=== PATIENT | male | born 1965 | race American Indian/Alaskan Native ===

== ENCOUNTER 2017-07-20 10:12 | Inpatient (IN) | payer OTHER ==
[2017-07-20 10:45] VITALS: BMI 31.8
[2017-07-20 11:41] LABS: BASO # 0.1 K/uL (0.0-0.2); BASO % 1.1 % (0.0-2.0); EOS # 0.2 K/uL (0.0-0.7); HEMATOCRIT 44.1 % (35.0-51.0); LYMPH # 1.9 K/uL (1.0-4.3); LYMPH % 25.5 % (20.0-40.0); MEAN CELL VOLUME 65.1 fL (80.0-94.0); MEAN CORPUSCULAR HEMOGLOBIN 20.9 pg (27.0-31.0); MEAN CORPUSCULAR HGB CONC 32.2 g/dL (33.0-37.0); MONO # 0.6 K/uL (0.0-0.8); MONO % 7.7 % (0.0-10.0); NRBC % 0.1 % (0.0-2.0); RED CELL DISTRIBUTION WIDTH 14.7 % (11.5-14.5); WHITE BLOOD COUNT 7.6 K/uL (4.8-10.8)
[2017-07-20 11:49] LABS: CHLORIDE 99 mmol/L (98-107); POTASSIUM 4.2 mmol/L (3.6-5.2); SODIUM 136 mmol/L (132-148)
[2017-07-20 11:51] LABS: GFR AFRICAN-AMERICAN > 60
[2017-07-20 11:52] LABS: ALB/GLOB RATIO 0.9 (1.0-2.1); ALKALINE PHOSPHATASE 47 U/L (38-126); ALT/SGPT 68 U/L (21-72); AST/SGOT 30 U/L (17-59); BILIRUBIN,TOTAL 0.5 mg/dL (0.2-1.3); BLOOD UREA NITROGEN 18 mg/dL (9-20); CALCIUM 8.8 mg/dl (8.6-10.4); CARBON DIOXIDE 28 mmol/L (22-30); GLUCOSE,RANDOM 123 mg/dL (75-110); TOTAL PROTEIN 8.5 g/dL (6.3-8.3)
[2017-07-20 11:57] LABS: RBC URINE < 1 /hpf (0-3); URINE BILIRUBIN NEGATIVE (NEGATIVE); URINE BLOOD NEGATIVE (NEGATIVE); URINE COLOR Yellow (YELLOW); URINE GLUCOSE (UA) NORMAL (Normal); URINE KETONE NEGATIVE (NEGATIVE); URINE LEUKOCYTE ESTERASE NEG Leu/uL (Negative); URINE PROTEIN NEGATIVE (NEGATIVE); URINE UROBILINOGEN NORMAL mg/dL (0.2-1.0); WBC URINE 1 /hpf (0-5)
--- NOTE | 2017-07-20 12:41 | C.PDOC ---
History Of Present Illness 52 year old male presents to the ED after he accidentally hit his elbow while at work, left elbow swelled up associated with a fever and has a purulent discharge from his elbow. Patient went to his PMD Dr. Phelan who referred him to Dr. Costello and also prescribed him clindamycin then Dr. Costello sent the patient to the ED for evaluation and possible surgical treatment. Time Seen by Provider: 07/20/17 10:43 Chief Complaint (Nursing): Abnormal Skin Integrity History Per: Patient History/Exam Limitations: no limitations Onset/Duration Of Symptoms: Days Location Of Injury: Left: Elbow (swelling to olecranon area) Quality Of Symptoms: Swollen Recent travel outside of the [place]: No Additional History Per: Patient Past Medical History Reviewed: Historical Data, Nursing Documentation, Vital Signs Vital Signs: Last Vital Signs Temp 98.1 F 07/20/17 14:19 Pulse 59 L 07/20/17 17:00 Resp 13 07/20/17 17:00 BP 123/84 07/20/17 17:00 Pulse Ox 99 07/20/17 17:46 - Medical History PMH: HTN Surgical History: No Surg Hx Family History: States: Unknown Family Hx - Social History Hx Alcohol Use: No Hx Substance Use: No - Immunization History Hx Tetanus Toxoid Vaccination: No Hx Influenza Vaccination: No Hx Pneumococcal Vaccination: No Review Of Systems Constitutional: Negative for: Fever, Chills Cardiovascular: Negative for: Chest Pain Respiratory: Negative for: Cough, Shortness of Breath Gastrointestinal: Negative for: Nausea, Vomiting, Abdominal Pain Musculoskeletal: Positive for: Arm Pain (Left elbow) Neurological: Negative for: Weakness, Numbness Physical Exam - Physical Exam Appears: Non-toxic, No Acute Distress Skin: Normal Color, Warm, Dry Head: Atraumatic, Normacephalic Oral Mucosa: Moist Neck: Normal ROM, Supple Chest: Symmetrical Cardiovascular: Rhythm Regular, No Murmur Respiratory: Normal Breath Sounds, No Accessory Muscle Use, No Rales, No Rhonchi , No Wheezing Gastrointestinal/Abdominal: Soft, No Tenderness Extremity: Normal ROM Neurological/Psych: Oriented x3, Normal Speech, Normal Cognition ED Course And Treatment - Laboratory Results Result Diagrams: 07/20/17 11:37 07/20/17 11:37 O2 Sat by Pulse Oximetry: 99 (RA) Pulse Ox Interpretation: Normal - Other Rad Left elbow X-Ray X-Ray: Interpreted by Me, Viewed By Me Interpretation: PROCEDURE: Radiographs of the left elbow. HISTORY: swelling/ pre-op. COMPARISON: No prior. FINDINGS: BONES: No acute fracture. JOINTS: Normal. No osteoarthritis. SOFT TISSUES: Loss of normal fat/ muscle plane over dorsal aspect of distal humerus and of the proximal radius. This may reflect focal cellulitis. Please correlate. There is smooth soft tissue swelling over the olecranon process which may reflect an olecranon bursitis. Please correlate. JOINT EFFUSION: None. OTHER FINDINGS: None. IMPRESSION: No fracture/ arthritis. Possible cellulitis. Possible olecranon bursitis. Progress Note: Plan: -Blood work, UA, EKG, CXR, left elbow ordered. -Dextrose 5% IV 1000 mls/Hr. Patient will be admiotted to Dr. Costello for same day surgery. CXR results: PROCEDURE: CHEST RADIOGRAPH, 1 VIEW. HISTORY: Pre Op. COMPARISON: None available. FINDINGS: LUNGS: No focal infiltrate or effusion. Mild right hilar prominence. PLEURA: No pneumothorax or pleural fluid seen. CARDIOVASCULAR: Normal. OSSEOUS STRUCTURES: No significant abnormalities. VISUALIZED UPPER ABDOMEN: Normal. OTHER FINDINGS: None. IMPRESSION: No focal infiltrate or effusion. Mild right hilar prominence. Disposition - Disposition Disposition: HOSPITALIZED Disposition Time: 13:41 Condition: FAIR - Clinical Impression Clinical Impression: Abscess, elbow - PA / SOFTWARE QUALITY ASSURANCE ANALYST / Resident Statement MD/DO has reviewed & agrees with the documentation as recorded. - Scribe Statement The provider has reviewed the documentation as recorded by the Scribe Parminder Kraus All medical record entries made by the Scribe were at my direction and personally dictated by me. I have reviewed the chart and agree that the record accurately reflects my personal performance of the history, physical exam, medical decision making, and the department course for this patient. I have also personally directed, reviewed, and agree with the discharge instructions and disposition. Decision To Admit - Pt Status Changed To: Hospital Disposition Of: Inpatient - Admit Certification Admit to Inpatient:: After my assessment, the patient will require hospitalization for at least two midnights. This is because of the severity of symptoms shown, intensity of services needed, and/or the medical risk in this patient being treated as an outpatient. - InPatient: Physician Admission Certification: I certify that this patient requires 2 or more midnights of care for the following reason:: Pt went to OR, he will need IV antibiotics. - . Bed Request Type: Regular Admitting Physician: Arnold Phelan Patient Diagnosis: Abscess, elbow
[2017-07-20] MEDS ORDERED: Lactated Ringer's 1,000 ML IV ONE ×3 (13:18→16:57)
[2017-07-20] MEDS ORDERED: Bupivacaine HCl 0.25% PF (10 ml) Inj ONE (13:28)
[2017-07-20] MEDS ORDERED: ceFAZolin IV 2 gm in Dextrose 2 GM/50 ML BAG IVPB ONE (13:29)
[2017-07-20] MEDS ORDERED: Lidocaine 1% Inj (20ml) ONE (13:29)
[2017-07-20] MEDS ORDERED: Midazolam 2 MG/2 ML VIAL ONE (13:33)
[2017-07-20] MEDS ORDERED: Propofol 10 mg/ml Inj (20 ML) ONE ×2 (13:34→13:41)
[2017-07-20] MEDS ORDERED: Lidocaine Hydrochloride 5 ML INJ ONE (13:35)
--- NOTE | 2017-07-20 13:57 | RAD ---
PROCEDURE: CHEST RADIOGRAPH, 1 VIEW HISTORY: Pre Op COMPARISON: None available. FINDINGS: LUNGS: No focal infiltrate or effusion. Mild right hilar prominence. PLEURA: No pneumothorax or pleural fluid seen. CARDIOVASCULAR: Normal. OSSEOUS STRUCTURES: No significant abnormalities. VISUALIZED UPPER ABDOMEN: Normal. OTHER FINDINGS: None. IMPRESSION: No focal infiltrate or effusion. Mild right hilar prominence.
[2017-07-20] MEDS: HYDROmorphone 0.5 mg/0.5 ml ISec IVP PRN ×3 (14:26→15:00)
[2017-07-20] MEDS ORDERED: HYDROmorphone 1 mg/ml ISec ONE (15:01)
--- NOTE | 2017-07-20 16:08 | OP ---
PROCEDURE DATE: 07/20/2017 PREOPERATIVE DIAGNOSIS: Abscess of the left elbow. POSTOPERATIVE DIAGNOSIS: Infected mass of the left elbow. PROCEDURE PERFORMED: Wide and deep excision of an infected mass on the left elbow with partial adjacent tissue transfer closure and drainage of underlying abscess. SURGEON: Dr. Ko ANESTHESIA: General. BLOOD LOSS: 30 mL. POSTOPERATIVE CONDITION: Stable. INDICATIONS FOR SURGERY: A 52-year-old male with a large infected mass and abscess of his left elbow on status post traumatic injury who will now undergo a wide and deep drainage. GROSS FINDINGS: There was an inflamed mass containing necrotic fat within the elbow which was excised. Underlying it was pus which was drained and remaining necrotic tissue needed to be debrided, it was a fairly large extensive process and at the end of the procedure there was good clean tissue, although the wound was left open due to underlying abscess. PROCEDURE: The patient was taken to the operating room, general anesthesia was admitted was administered. The left elbow was prepped and draped. An elliptical incision was made surrounding the infected mass, it was dissected into the left elbow subcutaneous deep space, necrotic fat and pus was encountered, drained and cultured. The wound was aggressively debrided. A bleeding blood vessel was repaired. The wound was irrigated with copious amounts of saline solution. A partial tissue transfer closure was performed periphery. Central portion of wound was packed open with saline gauze. The patient on procedure well, returned to recovery room in stable condition. Renato Ko MD
--- NOTE | 2017-07-20 16:45 | RAD ---
PROCEDURE: Radiographs of the left elbow. HISTORY: swelling/pre-op COMPARISON: No prior. FINDINGS: BONES: No acute fracture. JOINTS: Normal. No osteoarthritis. SOFT TISSUES: Loss of normal fat/ muscle plane over dorsal aspect of distal humerus and of the proximal radius. This may reflect focal cellulitis. Please correlate. There is smooth soft tissue swelling over the olecranon process which may reflect an olecranon bursitis. Please correlate. JOINT EFFUSION: None. OTHER FINDINGS: None IMPRESSION: No fracture/ arthritis. Possible cellulitis. Possible olecranon bursitis.
[2017-07-20] MEDS: ceFAZolin 1 gm FROZEN Premix 1 GM/50 ML ML IVPB SCH (22:00)
--- NOTE | 2017-07-20 22:35 | CP.PCM.HP ---
History of Present Illness - History of Present Illness History of Present Illness: CC: Left elbow pain HPI: 52 year old male with h/o HTN, comlaint with diet , medicating and follow up presents to the ED after he accidentally hit his elbow while at work, left elbow swelled up associated with a fever and has a purulent discharge from his elbow. Patient came in my office today was referred him to Dr. Costello and also prescribed him clindamycin then Dr. Costello sent the patient to the ED for evaluation and possible surgical treatment Present on Admission - Present on Admission Any Indicators Present on Admission: Yes Review of Systems - Review of Systems Systems not reviewed;Unavailable: Acuity of Condition - Constitutional Constitutional: absent: As Per HPI, Anorexia, Chills, Daytime Sleepiness, Excessive Sweating, Fatigue, Fever, Frequent Falls, Headache, Increased Appetite , Lethargy, Malaise, Night Sweats, Snoring, Sleep Apnea, Weight Gain, Weight Loss, Weakness, Other - EENT Eyes: absent: As Per HPI, Blind Spots, Blurred Vision, Change in Vision, Decreased Night Vision, Diplopia, Discharge, Dry Eye, Exophthalmos, Floaters, Irritation, Itchy Eyes, Loss of Peripheral Vision, Pain, Photophobia, Requires Corrective Lenses, Sees Flashes, Spots in Vision, Tunnel Vision, Other Visual Disturbances, Loss of Vision, Other Ears: absent: As Per HPI, Decreased Hearing, Ear Discharge, Ear Pain, Tinnitus, Abnormal Hearing, Disequilibrium, Dizziness, Other Nose/Mouth/Throat: absent: As Per HPI, Epistaxis, Nasal Congestion, Nasal Discharge, Nasal Obstruction, Nasal Trauma, Nose Pain, Post Nasal Drip, Sinus Pain, Sinus Pressure, Bleeding Gums, Change in Voice, Dental Pain, Dry Mouth, Dysphagia, Halitosis, Hoarsness, Lip Swelling, Mouth Lesions, Mouth Pain, Odynophagia, Sore Throat, Throat Swelling, Tongue Swelling, Facial Pain, Neck Pain, Neck Mass, Other - Cardiovascular Cardiovascular: absent: As Per HPI, Acrocyanosis, Chest Pain, Chest Pain at Rest , Chest Pain with Activity, Claudication, Diaphoresis, Dyspnea, Dyspnea on Exertion, Edema, Irregular Heart Rhythm, Pain Radiating to Arm/Neck/Jaw, Leg Edema, Leg Ulcers, Lightheadedness, Orthopnea, Palpitations, Paroxysmal Nocturnal Dyspnea, Pedal Edema, Radiating Pain, Rapid Heart Rate, Slow Heart Rate, Syncope, Other - Respiratory Respiratory: absent: As Per HPI, Cough, Dyspnea, Hemoptysis, Dyspnea on Exertion , Wheezing, Snoring, Stridor, Pain on Inspiration, Chest Congestion, Excessive Mucous Production, Change in Mucous Color, Pain with Coughing, Other - Gastrointestinal Gastrointestinal: absent: As Per HPI, Abdominal Pain, Belching, Bloating, Change in Bowel Habits, Change in Stool Character, Coffee Ground Emesis, Constipation, Cramping, Diarrhea, Dyspepsia, Dysphagia, Early Satiety, Excessive Flatus, Fecal Incontinence, Heartburn, Hematemesis, Hematochezia, Loose Stools, Melena, Nausea, Odynophagia, Temesmus, Vomiting, Other - Genitourinary Genitourinary: absent: As Per HPI, Change in Urinary Stream, Difficulty Urinating, Dysuria, Flank Pain, Hematuria, Pyuria, Nocturia, Urinary Incontinence, Urinary Frequency, Urinary Hesitance, Urinary Urgency, Voiding Freq/Small Amts, Freq UTI, Hx Renal/Bladder Calculi, Hx /Renal Surgery, Bladder Distension, Other - Musculoskeletal Musculoskeletal: Joint Swelling, Myalgias Past Patient History - Past Medical History & Family History Past Medical History?: Yes - Past Social History Smoking Status: Never Smoked - CARDIAC Hx Cardiac Disorders: Yes Hx Hypertension: Yes - PULMONARY Hx Respiratory Disorders: No - NEUROLOGICAL Hx Neurological Disorder: No - HEENT Hx HEENT Problems: No - RENAL Hx Chronic Kidney Disease: No - ENDOCRINE/METABOLIC Hx Endocrine Disorders: No - HEMATOLOGICAL/ONCOLOGICAL Hx Blood Disorders: No - INTEGUMENTARY Hx Dermatological Problems: Yes Other/Comment: I & D done by Dr Ko left elbow abcess - MUSCULOSKELETAL/RHEUMATOLOGICAL Hx Musculoskeletal Disorders: No Hx Falls: No - GASTROINTESTINAL Hx Gastrointestinal Disorders: No - GENITOURINARY/GYNECOLOGICAL Hx Genitourinary Disorders: No - PSYCHIATRIC Hx Psychophysiologic Disorder: No Hx Substance Use: No - SURGICAL HISTORY Hx Surgeries: No - ANESTHESIA Hx Anesthesia: Yes Hx Anesthesia Reactions: No Hx Malignant Hyperthermia: No Has any member of the family had a problem w/ anesthesia?: No Meds Allergies/Adverse Reactions: Allergies Allergy/AdvReac Type Severity Reaction Status Date / Time No Known Allergies Allergy Verified 07/20/17 10:44 Physical Exam - Constitutional Appears: No Acute Distress - Eye Exam Eye Exam: EOMI, Normal appearance, PERRL Pupil Exam: NORMAL ACCOMODATION, PERRL - Cardiovascular Exam Cardiovascular Exam: REGULAR RHYTHM - GI/Abdominal Exam GI & Abdominal Exam: Normal Bowel Sounds, Soft. absent: Tenderness - Skin Skin Exam: Erythema Additional comments: elbow swelling, redness, discharge purulent Results - Vital Signs Recent Vital Signs: Last Vital Signs Temp 98.5 F 07/20/17 18:00 Pulse 71 07/20/17 18:00 Resp 20 07/20/17 18:00 BP 130/81 07/20/17 18:00 Pulse Ox 97 07/20/17 18:00 - Labs Result Diagrams: 07/20/17 11:37 07/20/17 11:37 Labs: Laboratory Results - last 24 hr 07/20/17 07/20/17 07/20/17 11:37 11:37 11:37 WBC 7.6 RBC 6.78 H Hgb 14.2 Hct 44.1 MCV 65.1 L MCH 20.9 L MCHC 32.2 L RDW 14.7 H Plt Count 322 MPV 9.0 Neut % (Auto) 63.7 Lymph % (Auto) 25.5 [place] % (Auto) 7.7 Eos % (Auto) 2.0 Baso % (Auto) 1.1 Neut # 4.8 Lymph # 1.9 [place] # 0.6 Eos # 0.2 Baso # 0.1 Differential Comment PT 11.8 INR 1.0 APTT 30 Sodium 136 Potassium 4.2 Chloride 99 Carbon Dioxide 28 Anion Gap 14 BUN 18 Creatinine 1.1 Est GFR ( Amer) > 60 Est GFR (Non-Af Amer) > 60 POC Glucose (mg/dL) Random Glucose 123 H Calcium 8.8 Total Bilirubin 0.5 AST 30 ALT 68 Alkaline Phosphatase 47 Total Protein 8.5 H Albumin 4.0 Globulin 4.4 H Albumin/Globulin Ratio 0.9 L Urine Color Urine Clarity Urine pH Ur Specific [place] Urine Protein Urine Glucose (UA) Urine Ketones Urine Blood Urine Nitrate Urine Bilirubin Urine Urobilinogen Ur Leukocyte Esterase Urine WBC (Auto) Urine RBC (Auto) Blood Type Antibody Screen 07/20/17 07/20/17 07/20/17 11:49 12:10 17:21 WBC RBC Hgb Hct MCV MCH MCHC RDW Plt Count MPV Neut % (Auto) Lymph % (Auto) [place] % (Auto) Eos % (Auto) Baso % (Auto) Neut # Lymph # [place] # Eos # Baso # Differential Comment PT INR APTT Sodium Potassium Chloride Carbon Dioxide Anion Gap BUN Creatinine Est GFR ( Amer) Est GFR (Non-Af Amer) POC Glucose (mg/dL) 119 H Random Glucose Calcium Total Bilirubin AST ALT Alkaline Phosphatase Total Protein Albumin Globulin Albumin/Globulin Ratio Urine Color Yellow Urine Clarity Clear Urine pH 6.0 Ur Specific [place] 1.013 Urine Protein Negative Urine Glucose (UA) Normal Urine Ketones Negative Urine Blood Negative Urine Nitrate Negative Urine Bilirubin Negative Urine Urobilinogen Normal Ur Leukocyte Esterase Neg Urine WBC (Auto) 1 Urine RBC (Auto) < 1 Blood Type A POSITIVE Antibody Screen Negative Assessment & Plan (1) Abscess, elbow Status: Acute
[2017-07-21] MEDS ORDERED: DiphenhydrAMINE 50 mg/ml Inj IVP STA ×2 (02:36→09:18)
[2017-07-21] MEDS: ceFAZolin 1 gm FROZEN Premix 1 GM/50 ML ML IVPB SCH ×4 (06:11→22:02)
[2017-07-21] MEDS: Enoxaparin 40 mg Syringe SC SCH (09:47)
[2017-07-21] MEDS: Multiple Vitamins Tab PO SCH (09:47)
--- NOTE | 2017-07-21 11:05 | CP.PCM.CON ---
History of Present Illness - History of Present Illness History of Present Illness: 52 year old male presents to the ED after he accidentally hitting his elbow on a trailer while at work, left elbow swelled up associated with a fever and has a purulent discharge from his elbow. Patient failed out pt rx wiith clindamuycin and was referred here for I and D went to OR yesterday await cultures c/o pain and lip swelling after soft drink from [employer] ? Hx HTN borderline DM Review of Systems - Constitutional Constitutional: As Per HPI - EENT Eyes: absent: As Per HPI, Blind Spots, Blurred Vision, Change in Vision, Decreased Night Vision, Diplopia, Discharge, Dry Eye, Exophthalmos, Floaters, Irritation, Itchy Eyes, Loss of Peripheral Vision, Pain, Photophobia, Requires Corrective Lenses, Sees Flashes, Spots in Vision, Tunnel Vision, Other Visual Disturbances, Loss of Vision, Other Ears: absent: As Per HPI, Decreased Hearing, Ear Discharge, Ear Pain, Tinnitus, Abnormal Hearing, Disequilibrium, Dizziness, Other Nose/Mouth/Throat: As Per HPI - Cardiovascular Cardiovascular: absent: As Per HPI, Acrocyanosis, Chest Pain, Chest Pain at Rest , Chest Pain with Activity, Claudication, Diaphoresis, Dyspnea, Dyspnea on Exertion, Edema, Irregular Heart Rhythm, Pain Radiating to Arm/Neck/Jaw, Leg Edema, Leg Ulcers, Lightheadedness, Orthopnea, Palpitations, Paroxysmal Nocturnal Dyspnea, Pedal Edema, Radiating Pain, Rapid Heart Rate, Slow Heart Rate, Syncope, Other - Gastrointestinal Gastrointestinal: absent: As Per HPI, Abdominal Pain, Belching, Bloating, Change in Bowel Habits, Change in Stool Character, Coffee Ground Emesis, Constipation, Cramping, Diarrhea, Dyspepsia, Dysphagia, Early Satiety, Excessive Flatus, Fecal Incontinence, Heartburn, Hematemesis, Hematochezia, Loose Stools, Melena, Nausea, Odynophagia, Temesmus, Vomiting, Other - Genitourinary Genitourinary: absent: As Per HPI, Change in Urinary Stream, Difficulty Urinating, Dysuria, Flank Pain, Hematuria, Pyuria, Nocturia, Urinary Incontinence, Urinary Frequency, Urinary Hesitance, Urinary Urgency, Voiding Freq/Small Amts, Freq UTI, Hx Renal/Bladder Calculi, Hx /Renal Surgery, Bladder Distension, Other - Musculoskeletal Musculoskeletal: As Per HPI - Integumentary Integumentary: As Per HPI, Skin Pain, Wounds - Neurological Neurological: absent: As Per HPI, Abnormal Gait, Abnormal Hearing, Abnormal Movements, Abnormal Speech, Behavioral Changes, Burning Sensations, Confusion, Convulsions, Disequilibrium, Dizziness, Numbness, Focal Weakness, Frequent Falls , Headaches, Lack of Coordination, Loss of Vision, Memory Loss, Paresthesias, Radicular Pain, Restless Legs, Sensory Deficit, Syncope, Tingling, Tremor, Vertigo, Weakness, Other Visual Disturbances, Other - Psychiatric Psychiatric: absent: As Per HPI, Abnormal Sleep Pattern, Anhedonia, Anxiety, Auditory Hallucinations, Behavioral Changes, Change in Appetite, Change in Libido, Confusion, Depression, Difficulty Concentrating, Hallucinations, Homicidal Ideation, Hopelessness, Irritability, Memory Loss, Mood Swings, Panic Attacks, Paranoia, Suicidal Ideation, Visual Hallucinations, Tactile Hallucinations, Other - Endocrine Endocrine: absent: As Per HPI, Change in Body Appearance, Change in Libido, Cold Intolorance, Deepening of Voice, Excessive Sweating, Fatigue, Flushing, Heat Intolorance, Increase in Ring/Shoe/Hat Size, Palpitations, Polydipsia, Polyphagia, Polyuria, Other - Hematologic/Lymphatic Hematologic: absent: As Per HPI, Easy Bleeding, Easy Bruising, Lymphadenopathy, Other Past Patient History - Past Medical History & Family History Past Medical History?: Yes - Past Social History Smoking Status: Never Smoked - CARDIAC Hx Cardiac Disorders: Yes Hx Hypertension: Yes - PULMONARY Hx Respiratory Disorders: No - NEUROLOGICAL Hx Neurological Disorder: No - HEENT Hx HEENT Problems: No - RENAL Hx Chronic Kidney Disease: No - ENDOCRINE/METABOLIC Hx Endocrine Disorders: No - HEMATOLOGICAL/ONCOLOGICAL Hx Blood Disorders: No - INTEGUMENTARY Hx Dermatological Problems: Yes Other/Comment: I & D done by Dr Ko left elbow abcess - MUSCULOSKELETAL/RHEUMATOLOGICAL Hx Musculoskeletal Disorders: No Hx Falls: No - GASTROINTESTINAL Hx Gastrointestinal Disorders: No - GENITOURINARY/GYNECOLOGICAL Hx Genitourinary Disorders: No - PSYCHIATRIC Hx Psychophysiologic Disorder: No Hx Substance Use: No - SURGICAL HISTORY Hx Surgeries: No - ANESTHESIA Hx Anesthesia: Yes Hx Anesthesia Reactions: No Hx Malignant Hyperthermia: No Has any member of the family had a problem w/ anesthesia?: No Meds Allergies/Adverse Reactions: Allergies Allergy/AdvReac Type Severity Reaction Status Date / Time No Known Allergies Allergy Verified 07/20/17 10:44 - Medications Medications: Current Medications Amlodipine Besylate (Norvasc) 10 mg PO DAILY [facility] Last Admin: 07/21/17 09:35 Dose: 10 mg Docusate Sodium (Colace) 100 mg PO BID [facility] Last Admin: 07/21/17 09:47 Dose: Not Given Enalapril Maleate (Vasotec) 20 mg PO DAILY [facility] Last Admin: 07/21/17 09:35 Dose: 20 mg Enoxaparin Sodium (Lovenox) 40 mg SC DAILY [facility] Last Admin: 07/21/17 09:47 Dose: Not Given Cefazolin Sodium (Ancef) 1 gm in 50 mls @ 100 mls/hr IVPB Q8H [facility] Last Admin: 07/21/17 06:11 Dose: 100 mls/hr Clindamycin Phosphate 300 mg/ (Dextrose) 52 mls @ 100 mls/hr IVPB Q6H [facility] Last Admin: 07/21/17 04:47 Dose: 100 mls/hr Ketorolac Tromethamine (Toradol) 30 mg IVP Q6 PRN PRN Reason: pain 8-10 Stop: 07/25/17 14:45 Multivitamins (Hexavitamin) 1 tab PO DAILY [facility] Last Admin: 07/21/17 09:47 Dose: Not Given Pantoprazole Sodium (Protonix Inj) 40 mg IVP DAILY [facility] Last Admin: 07/21/17 09:47 Dose: 40 mg Rosuvastatin Calcium (Crestor) 5 mg PO HS [facility] Last Admin: 07/20/17 21:33 Dose: 5 mg Tramadol HCl (Ultram) 50 mg PO TID [facility] Last Admin: 07/21/17 09:36 Dose: Not Given Physical Exam - Constitutional Appears: Chronically Ill - Head Exam Head Exam: NORMAL INSPECTION - Eye Exam Eye Exam: PERRL - ENT Exam ENT Exam: Mucous Membranes Dry, Normal Oropharynx - Neck Exam Neck exam: Negative for: Lymphadenopathy - Respiratory Exam Respiratory Exam: Decreased Breath Sounds, Clear to Auscultation Bilateral - Cardiovascular Exam Cardiovascular Exam: REGULAR RHYTHM, +S1, +S2 - GI/Abdominal Exam GI & Abdominal Exam: Diminished Bowel Sounds, Soft. absent: Tenderness - Rectal Exam Rectal Exam: Deferred - Exam Exam: NORMAL INSPECTION - Extremities Exam Extremities exam: Positive for: pedal pulses present. Negative for: calf tenderness, pedal edema, tenderness - Back Exam Back exam: absent: CVA tenderness (L), CVA tenderness (R) - Neurological Exam Neurological exam: Alert, CN II-XII Intact, Oriented x3, Reflexes Normal - Psychiatric Exam Psychiatric exam: Normal Mood - Skin Skin Exam: Dry Additional comments: swelling left elbow with dressing over olecranon bursa and surrounding cellulitis Results - Vital Signs Recent Vital Signs: Last Vital Signs Temp 98.7 F 07/20/17 23:42 Pulse 69 07/20/17 23:42 Resp 20 07/20/17 23:42 BP 135/82 07/21/17 09:35 Pulse Ox 98 07/20/17 23:42 - Labs Result Diagrams: 07/20/17 11:37 07/20/17 11:37 Labs: Laboratory Results - last 24 hr 07/20/17 07/20/17 07/20/17 11:37 11:37 11:37 WBC 7.6 RBC 6.78 H Hgb 14.2 Hct 44.1 MCV 65.1 L MCH 20.9 L MCHC 32.2 L RDW 14.7 H Plt Count 322 MPV 9.0 Neut % (Auto) 63.7 Lymph % (Auto) 25.5 [place] % (Auto) 7.7 Eos % (Auto) 2.0 Baso % (Auto) 1.1 Neut # 4.8 Lymph # 1.9 [place] # 0.6 Eos # 0.2 Baso # 0.1 Differential Comment PT 11.8 INR 1.0 APTT 30 Sodium 136 Potassium 4.2 Chloride 99 Carbon Dioxide 28 Anion Gap 14 BUN 18 Creatinine 1.1 Est GFR ( Amer) > 60 Est GFR (Non-Af Amer) > 60 POC Glucose (mg/dL) Random Glucose 123 H Calcium 8.8 Total Bilirubin 0.5 AST 30 ALT 68 Alkaline Phosphatase 47 Total Protein 8.5 H Albumin 4.0 Globulin 4.4 H Albumin/Globulin Ratio 0.9 L Urine Color Urine Clarity Urine pH Ur Specific [place] Urine Protein Urine Glucose (UA) Urine Ketones Urine Blood Urine Nitrate Urine Bilirubin Urine Urobilinogen Ur Leukocyte Esterase Urine WBC (Auto) Urine RBC (Auto) Blood Type Antibody Screen 07/20/17 07/20/17 07/20/17 11:49 12:10 17:21 WBC RBC Hgb Hct MCV MCH MCHC RDW Plt Count MPV Neut % (Auto) Lymph % (Auto) [place] % (Auto) Eos % (Auto) Baso % (Auto) Neut # Lymph # [place] # Eos # Baso # Differential Comment PT INR APTT Sodium Potassium Chloride Carbon Dioxide Anion Gap BUN Creatinine Est GFR ( Amer) Est GFR (Non-Af Amer) POC Glucose (mg/dL) 119 H Random Glucose Calcium Total Bilirubin AST ALT Alkaline Phosphatase Total Protein Albumin Globulin Albumin/Globulin Ratio Urine Color Yellow Urine Clarity Clear Urine pH 6.0 Ur Specific [place] 1.013 Urine Protein Negative Urine Glucose (UA) Normal Urine Ketones Negative Urine Blood Negative Urine Nitrate Negative Urine Bilirubin Negative Urine Urobilinogen Normal Ur Leukocyte Esterase Neg Urine WBC (Auto) 1 Urine RBC (Auto) < 1 Blood Type A POSITIVE Antibody Screen Negative Assessment & Plan (1) Cellulitis Status: Acute (2) Bursitis due to bacterial infection Status: Acute (3) Abscess, elbow Status: Acute - Assessment and Plan (Free Text) Assessment: await cultures cont iv antibiotics discussed tarik thorpe
--- NOTE | 2017-07-21 12:20 | CARD ---
APPROVED REPORT EKG Measurement Heart [id number] <Conclusion> Normal sinus rhythm Normal ECG
[2017-07-21] MEDS ORDERED: DiphenhydrAMINE 50 mg/ml Inj IVP PRN (12:25)
[2017-07-21] MEDS ORDERED: Lactated Ringer's 1,000 ML IV ONE (14:02)
[2017-07-21] MEDS ORDERED: ceFAZolin IV 1 gm in Dextrose 1 GM/50 ML BAG IVPB ONE (14:11)
[2017-07-21] MEDS ORDERED: Propofol 10 mg/ml Inj (20 ML) ONE (14:16)
[2017-07-21] MEDS ORDERED: Midazolam 2 MG/2 ML VIAL ONE (14:16)
[2017-07-21] MEDS ORDERED: HYDROmorphone 0.5 mg/0.5 ml ISec IVP PRN (14:42)
--- NOTE | 2017-07-21 18:30 | OP ---
PROCEDURE DATE: 07/21/2017 PREOPERATIVE DIAGNOSIS: Extensive abscess and necrosis to the right elbow. POSTOPERATIVE DIAGNOSIS: Extensive abscess and necrosis to the right elbow. PROCEDURE PERFORMED: Redebridement, drainage abscess to the right elbow with repair of blood vessel and partial adjacent tissue transfer closure. SURGEON: Renato Ko MD TYPE OF ANESTHESIA: General. BLOOD LOSS: 30 mL. POSTOPERATIVE CONDITION: Stable. INDICATIONS FOR SURGERY: A 52-year-old male who presented after a injury to his left elbow which developed into a necrosis and abscess. He is status post excision of an infected mass yesterday. We drained out the abscess today, was taken back to the OR for change of packing under anesthesia with the patient debridement and cleansing of the wound. DESCRIPTION OF PROCEDURE: The patient was taken to the operating room, general anesthesia was administered and left elbow area was prepped and draped after the previous packing was removed. There was a fair amount of bleeding within the wound and after suction and irrigation, a bleeding blood vessel was identified, mobilized and repaired. The wound was then aggressively debrided and drained of any abscess material and this whatever was drained, was also cultured. It was then pulse irrigated with a 3 L of saline and a partial adjacent tissue transfer closure was performed at the periphery. Central portion of the wound was packed open with saline gauze. The patient tolerated the procedure well and returned to the recovery room in stable condition. Renato Ko MD
--- NOTE | 2017-07-21 23:25 | CP.PCM.PN ---
Subjective - Date & Time of Evaluation Date of Evaluation: 07/21/17 Time of Evaluation: 19:00 - Subjective Subjective: Pt seen and examined, on antibiotics for elbow abscess, awaiting cultures pt developed perioral swelling due to some allergic reaction to food pt is for OR tommorow was given salmedrol Objective - Vital Signs/Intake and Output Vital Signs (last 24 hours): Temp Pulse Resp BP Pulse Ox 97.9 F 54 L 20 125/76 95 07/21/17 16:20 07/21/17 16:20 07/21/17 16:20 07/21/17 16:20 07/21/17 16:20 Intake and Output: 07/21/17 07/22/17 18:59 06:59 Intake Total 900 Balance 900 - Medications Medications: Current Medications Amlodipine Besylate (Norvasc) 10 mg PO DAILY [facility] Last Admin: 07/21/17 09:35 Dose: 10 mg Diphenhydramine HCl (Benadryl) 25 mg IVP Q6 PRN PRN Reason: Itching / Pruritus Last Admin: 07/21/17 18:48 Dose: 25 mg Docusate Sodium (Colace) 100 mg PO BID [facility] Last Admin: 07/21/17 18:06 Dose: 100 mg Enalapril Maleate (Vasotec) 20 mg PO DAILY [facility] Last Admin: 07/21/17 09:35 Dose: 20 mg Enoxaparin Sodium (Lovenox) 40 mg SC DAILY [facility] Last Admin: 07/21/17 09:47 Dose: Not Given Cefazolin Sodium (Ancef) 1 gm in 50 mls @ 100 mls/hr IVPB Q8H [facility] Last Admin: 07/21/17 22:02 Dose: 100 mls/hr Clindamycin Phosphate 300 mg/ (Dextrose) 52 mls @ 100 mls/hr IVPB Q6H [facility] Last Admin: 07/21/17 23:07 Dose: 100 mls/hr Ketorolac Tromethamine (Toradol) 30 mg IVP Q6 PRN PRN Reason: pain 8-10 Stop: 07/25/17 14:45 Multivitamins (Hexavitamin) 1 tab PO DAILY [facility] Last Admin: 07/21/17 09:47 Dose: Not Given Pantoprazole Sodium (Protonix Inj) 40 mg IVP DAILY [facility] Last Admin: 07/21/17 09:47 Dose: 40 mg Rosuvastatin Calcium (Crestor) 5 mg PO HS [facility] Last Admin: 07/21/17 22:21 Dose: 5 mg Tramadol HCl (Ultram) 50 mg PO TID [facility] Last Admin: 07/21/17 18:06 Dose: 50 mg - Labs Labs: 07/20/17 11:37 07/20/17 11:37 PT 11.8 SECONDS (9.7-12.2) 07/20/17 11:37 INR 1.0 07/20/17 11:37 APTT 30 SECONDS (21-34) 07/20/17 11:37 - Constitutional Appears: No Acute Distress - Head Exam Head Exam: ATRAUMATIC, NORMAL INSPECTION, NORMOCEPHALIC - Eye Exam Additional comments: perioral swelling. angioedema - ENT Exam ENT Exam: absent: Mucous Membranes Dry, Mucous Membranes Moist, Normal Exam, Normal External Ear Exam, Normal Oropharynx, TM's Normal Bilaterally - Respiratory Exam Respiratory Exam: Clear to Ausculation Bilateral, NORMAL BREATHING PATTERN - Cardiovascular Exam Cardiovascular Exam: REGULAR RHYTHM, +S1, +S2. absent: Murmur - GI/Abdominal Exam GI & Abdominal Exam: Soft, Normal Bowel Sounds. absent: Tenderness - Rectal Exam Rectal Exam: Deferred - Neurological Exam Neurological Exam: Alert, Awake, CN II-XII Intact, Normal Gait, Oriented x3 Assessment and Plan (1) Abscess, elbow Status: Acute (2) Angioedema Assessment & Plan: due to some allergic reaction' cause unknown Status: Acute
[2017-07-22] MEDS: ceFAZolin 1 gm FROZEN Premix 1 GM/50 ML ML IVPB SCH (05:55)
[2017-07-22] MEDS: Enoxaparin 40 mg Syringe SC SCH (10:00)
[2017-07-22] MEDS: Multiple Vitamins Tab PO SCH (10:00)
[2017-07-22] MEDS ORDERED: Lactated Ringer's 1,000 ML IV ONE ×2 (10:50→11:30)
[2017-07-22] MEDS ORDERED: Midazolam 2 MG/2 ML VIAL ONE (10:53)
[2017-07-22] MEDS ORDERED: Propofol 10 mg/ml Inj (20 ML) ONE (10:53)
[2017-07-22] MEDS ORDERED: Vancomycin 1 gm/D5W 200 ml 1 GM/200 ML BAG IVPB ONE (11:15)
[2017-07-22] MEDS ORDERED: HYDROmorphone 0.5 mg/0.5 ml ISec IVP PRN (11:30)
--- NOTE | 2017-07-22 12:22 | OP ---
PROCEDURE DATE: 07/20/2017 PREOPERATIVE DIAGNOSIS: Extensive MRSA infection of the left elbow. POSTOPERATIVE DIAGNOSIS: Extensive MRSA infection of the left elbow PROCEDURE PERFORMED: Debridement, open wound, open abscess cavity, left elbow with redrainage of abscess, partial flap closure. SURGEON: Dr. Renato Ko MD TYPE OF ANESTHESIA: General. BLOOD LOSS: 40 mL. POSTOPERATIVE CONDITION: Stable. INDICATIONS FOR SURGERY: A 52-year-old male with an MRSA infection in his elbow resulting in abscess and necrosis and incision and drainage and a debridement. He was taken back to the OR for change of packing under anesthesia and redebridement. DESCRIPTION OF PROCEDURE: The patient was taken to the operating room, general anesthesia was administered and left elbow was prepped and draped. The abscess cavity was again debrided of chronic tissue and any remaining collections were drained. The wound was pulse irrigated with saline and Kantrex solution. Flaps were raised and a partial flap closure was performed at the periphery. The central portion was packed open with saline gauze. The patient tolerated the procedure well and returned to the recovery room in stable condition. Renato Ko MD
--- NOTE | 2017-07-22 17:33 | CP.PCM.PN ---
Subjective - Date & Time of Evaluation Date of Evaluation: 07/22/17 Time of Evaluation: 09:00 - Subjective Subjective: pain in left elbow with severe swelling + no fever less drainage Objective - Vital Signs/Intake and Output Vital Signs (last 24 hours): Temp Pulse Resp BP Pulse Ox 98.2 F 60 12 108/70 97 07/22/17 12:30 07/22/17 12:30 07/22/17 12:30 07/22/17 12:30 07/22/17 12:30 Intake and Output: 07/22/17 07/22/17 06:59 18:59 Intake Total 250 Balance 250 - Medications Medications: Current Medications Amlodipine Besylate (Norvasc) 10 mg PO DAILY [facility] Last Admin: 07/22/17 10:00 Dose: Not Given Diphenhydramine HCl (Benadryl) 25 mg IVP Q6 PRN PRN Reason: Itching / Pruritus Last Admin: 07/21/17 18:48 Dose: 25 mg Docusate Sodium (Colace) 100 mg PO BID [facility] Last Admin: 07/22/17 17:13 Dose: 100 mg Enalapril Maleate (Vasotec) 20 mg PO DAILY [facility] Last Admin: 07/22/17 10:03 Dose: 20 mg Enoxaparin Sodium (Lovenox) 40 mg SC DAILY [facility] Last Admin: 07/22/17 10:00 Dose: Not Given Clindamycin Phosphate 300 mg/ (Dextrose) 52 mls @ 100 mls/hr IVPB Q6H [facility] Last Admin: 07/22/17 16:06 Dose: 100 mls/hr Multivitamins (Hexavitamin) 1 tab PO DAILY [facility] Last Admin: 07/22/17 10:00 Dose: Not Given Pantoprazole Sodium (Protonix Inj) 40 mg IVP DAILY [facility] Last Admin: 07/22/17 10:00 Dose: Not Given Rosuvastatin Calcium (Crestor) 5 mg PO HS [facility] Last Admin: 07/21/17 22:21 Dose: 5 mg Tramadol HCl (Ultram) 50 mg PO TID [facility] Last Admin: 07/22/17 17:13 Dose: 50 mg - Labs Labs: 07/20/17 11:37 07/20/17 11:37 PT 11.8 SECONDS (9.7-12.2) 11/13/17 11:37 INR 1.0 07/20/17 11:37 APTT 30 SECONDS (21-34) 07/20/17 11:37 - Constitutional Appears: Non-toxic, Chronically Ill - Head Exam Head Exam: NORMOCEPHALIC - Eye Exam Eye Exam: PERRL. absent: Scleral icterus - ENT Exam ENT Exam: Mucous Membranes Dry - Neck Exam Neck Exam: absent: Lymphadenopathy - Respiratory Exam Respiratory Exam: Decreased Breath Sounds - Cardiovascular Exam Cardiovascular Exam: REGULAR RHYTHM - GI/Abdominal Exam GI & Abdominal Exam: Distended, Soft - Rectal Exam Rectal Exam: Deferred - Exam Exam: NORMAL INSPECTION - Extremities Exam Extremities Exam: absent: Pedal Edema - Back Exam Back Exam: absent: CVA tenderness (L), CVA tenderness (R) - Neurological Exam Neurological Exam: Alert, Awake, Oriented x3 - Psychiatric Exam Psychiatric exam: Normal Mood - Skin Skin Exam: Dry Assessment and Plan (1) Cellulitis Status: Acute (2) Bursitis due to bacterial infection Status: Acute (3) Abscess, elbow Status: Acute - Assessment and Plan (Free Text) Assessment: MRSA left elbow IV rx in progress
[2017-07-22] MEDS ORDERED: Telavancin Hydrochloride 750 MG in Dextrose 5% In Water 100 ML IVPB SCH (18:00)
[2017-07-22] MEDS: (Novolog) Insulin Aspart, Recombinant 100 u/ml 10 ml vial SC SCH (21:31)
--- NOTE | 2017-07-22 23:03 | CP.PCM.PN ---
Subjective - Date & Time of Evaluation Date of Evaluation: 07/22/17 Time of Evaluation: 19:00 - Subjective Subjective: Pt seen and examined by me, he is for I and D for left elbow abscess Objective - Vital Signs/Intake and Output Vital Signs (last 24 hours): Temp Pulse Resp BP Pulse Ox 97.7 F 76 16 141/88 96 07/22/17 17:00 07/22/17 17:00 07/22/17 17:00 07/22/17 17:00 07/22/17 17:00 Intake and Output: 07/22/17 07/23/17 18:59 06:59 Intake Total 250 800 Balance 250 800 - Medications Medications: Current Medications Amlodipine Besylate (Norvasc) 5 mg PO DAILY [facility] Diphenhydramine HCl (Benadryl) 25 mg IVP Q6 PRN PRN Reason: Itching / Pruritus Last Admin: 07/21/17 18:48 Dose: 25 mg Docusate Sodium (Colace) 100 mg PO BID [facility] Last Admin: 07/22/17 17:13 Dose: 100 mg Enalapril Maleate (Vasotec) 20 mg PO DAILY [facility] Last Admin: 07/22/17 10:03 Dose: 20 mg Enoxaparin Sodium (Lovenox) 40 mg SC DAILY [facility] Last Admin: 07/22/17 10:00 Dose: Not Given Telavancin 750 mg/ Dextrose 100 mls @ 100 mls/hr IVPB Q24H [facility] Last Admin: 07/22/17 18:26 Dose: 100 mls/hr Insulin Aspart (Novolog) 0 unit SC ACHS EJ PRN Reason: Protocol Last Admin: 07/22/17 21:31 Dose: Not Given Metformin HCl (Glucophage) 500 mg PO DAILY [facility] Multivitamins (Hexavitamin) 1 tab PO DAILY [facility] Last Admin: 07/22/17 10:00 Dose: Not Given Pantoprazole Sodium (Protonix Inj) 40 mg IVP DAILY [facility] Last Admin: 07/22/17 10:00 Dose: Not Given Rosuvastatin Calcium (Crestor) 5 mg PO HS [facility] Last Admin: 07/22/17 21:09 Dose: 5 mg Tramadol HCl (Ultram) 50 mg PO TID [facility] Last Admin: 07/22/17 17:13 Dose: 50 mg - Labs Labs: 07/20/17 11:37 07/20/17 11:37 PT 11.8 SECONDS (9.7-12.2) 07/20/17 11:37 INR 1.0 07/20/17 11:37 APTT 30 SECONDS (21-34) 07/20/17 11:37 Assessment and Plan (1) Abscess, elbow Status: Acute (2) Angioedema Status: Acute - Assessment and Plan (Free Text) Plan: continue antibiotics accucheck
[2017-07-23] MEDS: (Novolog) Insulin Aspart, Recombinant 100 u/ml 10 ml vial SC SCH ×4 (07:29→22:51)
[2017-07-23 08:46] LABS: BASO # 0.1 K/uL (0.0-0.2); EOS # 0.2 K/uL (0.0-0.7); MEAN CORPUSCULAR HEMOGLOBIN 20.9 pg (27.0-31.0); MEAN PLATELET VOLUME 9.2 fL (7.2-11.7); MONO # 0.9 K/uL (0.0-0.8)
[2017-07-23 08:51] LABS: BLOOD UREA NITROGEN 19 mg/dL (9-20); CALCIUM 8.5 mg/dl (8.6-10.4); CARBON DIOXIDE 27 mmol/L (22-30); CHLORIDE 97 mmol/L (98-107); GFR AFRICAN-AMERICAN > 60; GLUCOSE,RANDOM 138 mg/dL (75-110); SODIUM 134 mmol/L (132-148)
[2017-07-23 08:55] LABS: BASO % 0.9 % (0.0-2.0); EOS % 2.2 % (0.0-4.0); HEMATOCRIT 45.8 % (35.0-51.0); LYMPH # 2.5 K/uL (1.0-4.3); LYMPH % 27.6 % (20.0-40.0); MEAN CELL VOLUME 65.4 fL (80.0-94.0); MONO % 10.3 % (0.0-10.0); NRBC % 0.3 % (0.0-2.0); RED CELL DISTRIBUTION WIDTH 14.8 % (11.5-14.5); WHITE BLOOD COUNT 8.9 K/uL (4.8-10.8)
[2017-07-23] MEDS: Multiple Vitamins Tab PO SCH (09:16)
[2017-07-23] MEDS: Enoxaparin 40 mg Syringe SC SCH (09:17)
[2017-07-23] MEDS ORDERED: Telavancin Hydrochloride 750 MG in Sodium Chloride 0.9% 100 ML IVPB SCH ×2 (10:45→18:00)
--- NOTE | 2017-07-23 19:08 | CP.PCM.PN ---
Subjective - Date & Time of Evaluation Date of Evaluation: 07/23/17 Time of Evaluation: 08:00 - Subjective Subjective: afebrile on Televancin for MRSA less pain and swelling Objective - Vital Signs/Intake and Output Vital Signs (last 24 hours): Temp Pulse Resp BP Pulse Ox 98.4 F 74 20 131/88 99 07/23/17 15:30 07/23/17 15:30 07/23/17 15:30 07/23/17 15:30 07/23/17 15:30 Intake and Output: 07/23/17 07/24/17 18:59 06:59 Intake Total 480 Balance 480 - Medications Medications: Current Medications Amlodipine Besylate (Norvasc) 5 mg PO DAILY [facility] Last Admin: 07/23/17 09:17 Dose: 5 mg Diphenhydramine HCl (Benadryl) 25 mg IVP Q6 PRN PRN Reason: Itching / Pruritus Last Admin: 07/21/17 18:48 Dose: 25 mg Docusate Sodium (Colace) 100 mg PO BID [facility] Last Admin: 07/23/17 17:50 Dose: Not Given Enalapril Maleate (Vasotec) 20 mg PO DAILY [facility] Last Admin: 07/23/17 09:16 Dose: 20 mg Enoxaparin Sodium (Lovenox) 40 mg SC DAILY [facility] Last Admin: 07/23/17 09:17 Dose: 40 mg Telavancin 750 mg/ Sodium (Chloride) 100 mls @ 100 mls/hr IVPB Q24H [facility] Insulin Aspart (Novolog) 0 unit SC ACHS JE PRN Reason: Protocol Last Admin: 07/23/17 17:50 Dose: Not Given Metformin HCl (Glucophage) 500 mg PO DAILY [facility] Last Admin: 07/23/17 09:16 Dose: 500 mg Multivitamins (Hexavitamin) 1 tab PO DAILY [facility] Last Admin: 07/23/17 09:16 Dose: 1 tab Pantoprazole Sodium (Protonix Inj) 40 mg IVP DAILY [facility] Last Admin: 07/23/17 09:17 Dose: 40 mg Rosuvastatin Calcium (Crestor) 5 mg PO HS [facility] Last Admin: 07/22/17 21:09 Dose: 5 mg Tramadol HCl (Ultram) 50 mg PO TID [facility] Last Admin: 07/23/17 17:50 Dose: Not Given - Labs Labs: 07/23/17 08:35 07/23/17 08:35 PT 11.8 SECONDS (9.7-12.2) 07/20/17 11:37 INR 1.0 07/20/17 11:37 APTT 30 SECONDS (21-34) 07/20/17 11:37 - Constitutional Appears: Non-toxic, Chronically Ill - Head Exam Head Exam: NORMOCEPHALIC - Eye Exam Eye Exam: PERRL. absent: Scleral icterus - ENT Exam ENT Exam: Mucous Membranes Dry - Neck Exam Neck Exam: absent: Lymphadenopathy - Respiratory Exam Respiratory Exam: Decreased Breath Sounds - Cardiovascular Exam Cardiovascular Exam: REGULAR RHYTHM - GI/Abdominal Exam GI & Abdominal Exam: Distended, Soft. absent: Tenderness - Rectal Exam Rectal Exam: Deferred - Exam Exam: NORMAL INSPECTION - Extremities Exam Extremities Exam: absent: Pedal Edema - Back Exam Back Exam: absent: CVA tenderness (L), CVA tenderness (R) - Neurological Exam Neurological Exam: Alert, Awake, Oriented x3 Assessment and Plan (1) Cellulitis Status: Acute (2) Bursitis due to bacterial infection Status: Acute (3) Abscess, elbow Status: Acute - Assessment and Plan (Free Text) Assessment: cont iv rx for now possible d/c on PO clinda when cleared by surgery
--- NOTE | 2017-07-23 22:40 | CP.PCM.PN ---
Subjective - Date & Time of Evaluation Date of Evaluation: 07/23/17 Time of Evaluation: 20:05 - Subjective Subjective: Pt seen and examined by me, is s/p I and D. He has MRSA in the elbow, is for antibiotics, ACCUcheck Objective - Vital Signs/Intake and Output Vital Signs (last 24 hours): Temp Pulse Resp BP Pulse Ox 98.4 F 74 20 131/88 99 07/23/17 15:30 07/23/17 15:30 07/23/17 15:30 07/23/17 15:30 07/23/17 15:30 Intake and Output: 07/23/17 07/24/17 18:59 06:59 Intake Total 480 Balance 480 - Medications Medications: Current Medications Amlodipine Besylate (Norvasc) 5 mg PO DAILY [facility] Last Admin: 07/23/17 09:17 Dose: 5 mg Diphenhydramine HCl (Benadryl) 25 mg IVP Q6 PRN PRN Reason: Itching / Pruritus Last Admin: 07/21/17 18:48 Dose: 25 mg Docusate Sodium (Colace) 100 mg PO BID [facility] Last Admin: 07/23/17 17:50 Dose: Not Given Enalapril Maleate (Vasotec) 20 mg PO DAILY [facility] Last Admin: 07/23/17 09:16 Dose: 20 mg Enoxaparin Sodium (Lovenox) 40 mg SC DAILY [facility] Last Admin: 07/23/17 09:17 Dose: 40 mg Telavancin 750 mg/ Sodium (Chloride) 100 mls @ 100 mls/hr IVPB Q24H [facility] Last Admin: 07/23/17 19:09 Dose: 100 mls/hr Insulin Aspart (Novolog) 0 unit SC ACHS [facility] PRN Reason: Protocol Last Admin: 07/23/17 17:50 Dose: Not Given Metformin HCl (Glucophage) 500 mg PO DAILY [facility] Last Admin: 07/23/17 09:16 Dose: 500 mg Multivitamins (Hexavitamin) 1 tab PO DAILY [facility] Last Admin: 07/23/17 09:16 Dose: 1 tab Pantoprazole Sodium (Protonix Inj) 40 mg IVP DAILY [facility] Last Admin: 07/23/17 09:17 Dose: 40 mg Rosuvastatin Calcium (Crestor) 5 mg PO HS [facility] Last Admin: 07/23/17 21:30 Dose: 5 mg Tramadol HCl (Ultram) 50 mg PO TID EJ Last Admin: 07/23/17 19:19 Dose: 50 mg - Labs Labs: 07/23/17 08:35 07/23/17 08:35 PT 11.8 SECONDS (9.7-12.2) 07/20/17 11:37 INR 1.0 07/20/17 11:37 APTT 30 SECONDS (21-34) 07/20/17 11:37 - Constitutional Appears: No Acute Distress - Head Exam Head Exam: ATRAUMATIC, NORMAL INSPECTION, NORMOCEPHALIC - Eye Exam Eye Exam: EOMI, Normal appearance, PERRL Pupil Exam: NORMAL ACCOMODATION, PERRL - Respiratory Exam Respiratory Exam: Clear to Ausculation Bilateral, NORMAL BREATHING PATTERN - Cardiovascular Exam Cardiovascular Exam: REGULAR RHYTHM, +S1, +S2. absent: Murmur - GI/Abdominal Exam GI & Abdominal Exam: Soft, Normal Bowel Sounds. absent: Tenderness - Extremities Exam Extremities Exam: Joint Swelling, Tenderness Additional comments: elbow s/p I and D Assessment and Plan (1) Abscess, elbow Status: Acute (2) Angioedema Status: Acute (3) Diabetes Status: Acute - Assessment and Plan (Free Text) Plan: antibiotics Accucheck
[2017-07-24] MEDS: (Novolog) Insulin Aspart, Recombinant 100 u/ml 10 ml vial SC SCH ×3 (08:12→18:13)
[2017-07-24] MEDS: Multiple Vitamins Tab PO SCH (09:54)
[2017-07-24] MEDS: Enoxaparin 40 mg Syringe SC SCH (09:54)
[2017-07-24] MEDS ORDERED: Lactated Ringer's 1,000 ML IV ONE ×2 (15:25)
[2017-07-24] MEDS ORDERED: Propofol 10 mg/ml Inj (20 ML) ONE ×2 (16:10→16:14)
[2017-07-24] MEDS ORDERED: Midazolam 2 MG/2 ML VIAL ONE (16:10)
--- NOTE | 2017-07-24 16:31 | CP.PCM.PN ---
Subjective - Date & Time of Evaluation Date of Evaluation: 07/24/17 Time of Evaluation: 10:45 - Subjective Subjective: Patient seen and examined today , denies any chest pain, sob, fever, chills, N/ V , c/o mild pain to the left elbow a febrile for OR today for closure of wound Objective - Vital Signs/Intake and Output Vital Signs (last 24 hours): Temp Pulse Resp BP Pulse Ox 98 F 67 20 135/82 96 07/24/17 08:02 07/24/17 08:02 07/24/17 08:02 07/24/17 08:02 07/24/17 08:02 Intake and Output: 07/24/17 07/24/17 06:59 18:59 Intake Total 900 Balance 900 - Medications Medications: Current Medications Amlodipine Besylate (Norvasc) 5 mg PO DAILY [facility] Last Admin: 07/24/17 09:54 Dose: Not Given Diphenhydramine HCl (Benadryl) 25 mg IVP Q6 PRN PRN Reason: Itching / Pruritus Last Admin: 07/21/17 18:48 Dose: 25 mg Docusate Sodium (Colace) 100 mg PO BID [facility] Last Admin: 07/24/17 09:53 Dose: Not Given Enalapril Maleate (Vasotec) 20 mg PO DAILY [facility] Last Admin: 07/24/17 09:55 Dose: Not Given Enoxaparin Sodium (Lovenox) 40 mg SC DAILY [facility] Last Admin: 07/24/17 09:54 Dose: Not Given Telavancin 750 mg/ Sodium (Chloride) 100 mls @ 100 mls/hr IVPB Q24H [facility] Last Admin: 07/23/17 19:09 Dose: 100 mls/hr Insulin Aspart (Novolog) 0 unit SC ACHS [facility] PRN Reason: Protocol Last Admin: 07/24/17 13:47 Dose: Not Given Metformin HCl (Glucophage) 500 mg PO DAILY [facility] Last Admin: 07/24/17 09:53 Dose: Not Given Multivitamins (Hexavitamin) 1 tab PO DAILY [facility] Last Admin: 07/24/17 09:54 Dose: Not Given Pantoprazole Sodium (Protonix Inj) 40 mg IVP DAILY [facility] Last Admin: 07/24/17 13:47 Dose: Not Given Rosuvastatin Calcium (Crestor) 5 mg PO HS [facility] Last Admin: 07/23/17 21:30 Dose: 5 mg Tramadol HCl (Ultram) 50 mg PO TID E[facility] Last Admin: 07/24/17 09:54 Dose: Not Given - Labs Labs: 07/23/17 08:35 07/23/17 08:35 PT 11.8 SECONDS (9.7-12.2) 07/20/17 11:37 INR 1.0 07/20/17 11:37 APTT 30 SECONDS (21-34) 07/20/17 11:37
[2017-07-24] MEDS: HYDROmorphone 0.5 mg/0.5 ml ISec IVP PRN ×2 (17:00→17:15)
[2017-07-24 17:21] VITALS: O2SAT 98
[2017-07-24 18:07] VITALS: BP 132/89; PULSE 74; RESP 20; TEMP 97.3
[2017-07-24] MEDS ORDERED: Influenza Vaccine 60 mcg/0.5 mL SYR (4YR UP) IM ONE (18:11)
[2017-07-24] MEDS ORDERED: Pneumococcal 23-Valent Vaccine IM ONE (18:11)
--- NOTE | 2017-07-24 23:27 | CP.PCM.DIS ---
Provider - Provider Date of Admission: 07/20/17 13:40 Attending physician: Arnold Phelan MD Diagnosis - Discharge Diagnosis (1) Abscess, elbow Status: Acute (2) Angioedema Status: Acute Hospital Course - Lab Results Lab Results: Micro Results 07/22/17 Unknown Elbow - Left Gram Stain - Final 07/22/17 Unknown Elbow - Left Wound Culture - Final Methicillin Resistant S Aureus 07/21/17 14:30 Elbow - Left Gram Stain - Final 07/21/17 14:30 Elbow - Left Wound Culture - Final Methicillin Resistant S Aureus 07/20/17 16:00 Elbow - Left Gram Stain - Final 07/20/17 16:00 Elbow - Left Wound Culture - Final Methicillin Resistant S Aureus Most Recent Lab Values WBC 8.9 K/uL (4.8-10.8) 07/23/17 08:35 RBC 7.01 Mil/uL (4.40-5.90) H 07/23/17 08:35 Hgb 14.6 g/dL (12.0-18.0) 07/23/17 08:35 Hct 45.8 % (35.0-51.0) 07/23/17 08:35 MCV 65.4 fL (80.0-94.0) L 07/23/17 08:35 MCH 20.9 pg (27.0-31.0) L 07/23/17 08:35 MCHC 32.0 g/dL (33.0-37.0) L 07/23/17 08:35 RDW 14.8 % (11.5-14.5) H 07/23/17 08:35 Plt Count 335 K/uL (130-400) 07/23/17 08:35 MPV 9.2 fL (7.2-11.7) 07/23/17 08:35 Neut % (Auto) 59.0 % (50.0-75.0) 07/23/17 08:35 Lymph % (Auto) 27.6 % (20.0-40.0) 07/23/17 08:35 [place] % (Auto) 10.3 % (0.0-10.0) H 07/23/17 08:35 Eos % (Auto) 2.2 % (0.0-4.0) 07/23/17 08:35 Baso % (Auto) 0.9 % (0.0-2.0) 07/23/17 08:35 Neut # 5.3 K/uL (1.8-7.0) 07/23/17 08:35 Lymph # 2.5 K/uL (1.0-4.3) 07/23/17 08:35 [place] # 0.9 K/uL (0.0-0.8) H 07/23/17 08:35 Eos # 0.2 K/uL (0.0-0.7) 07/23/17 08:35 Baso # 0.1 K/uL (0.0-0.2) 07/23/17 08:35 Differential Comment 07/20/17 11:37 PT 11.8 SECONDS (9.7-12.2) 07/20/17 11:37 INR 1.0 07/20/17 11:37 APTT 30 SECONDS (21-34) 07/20/17 11:37 Sodium 134 mmol/L (132-148) 07/23/17 08:35 Potassium 4.0 mmol/L (3.6-5.2) 07/23/17 08:35 Chloride 97 mmol/L (98-107) L 07/23/17 08:35 Carbon Dioxide 27 mmol/L (22-30) 07/23/17 08:35 Anion Gap 14 (10-20) 07/23/17 08:35 BUN 19 mg/dL (9-20) 07/23/17 08:35 Creatinine 1.2 mg/dL (0.8-1.5) 07/23/17 08:35 Est GFR ( Amer) > 60 07/23/17 08:35 Est GFR (Non-Af Amer) > 60 07/23/17 08:35 POC Glucose (mg/dL) 105 mg/dL (65-110) 07/24/17 17:11 Random Glucose 138 mg/dL (75-110) H 07/23/17 08:35 Calcium 8.5 mg/dl (8.6-10.4) L 07/23/17 08:35 Total Bilirubin 0.5 mg/dL (0.2-1.3) 07/20/17 11:37 AST 30 U/L (17-59) 07/20/17 11:37 ALT 68 U/L (21-72) 07/20/17 11:37 Alkaline Phosphatase 47 U/L (38-126) 07/20/17 11:37 Total Protein 8.5 g/dL (6.3-8.3) H 07/20/17 11:37 Albumin 4.0 g/dL (3.5-5.0) 07/20/17 11:37 Globulin 4.4 gm/dL (2.2-3.9) H 07/20/17 11:37 Albumin/Globulin Ratio 0.9 (1.0-2.1) L 07/20/17 11:37 Urine Color Yellow (YELLOW) 07/20/17 11:49 Urine Clarity Clear (Clear) 07/20/17 11:49 Urine pH 6.0 (5.0-8.0) 07/20/17 11:49 Ur Specific [place] 1.013 (1.003-1.030) 07/20/17 11:49 Urine Protein Negative mg/dL (NEGATIVE) 07/20/17 11:49 Urine Glucose (UA) Normal mg/dL (Normal) 07/20/17 11:49 Urine Ketones Negative mg/dL (NEGATIVE) 07/20/17 11:49 Urine Blood Negative (NEGATIVE) 07/20/17 11:49 Urine Nitrate Negative (NEGATIVE) 07/20/17 11:49 Urine Bilirubin Negative (NEGATIVE) 07/20/17 11:49 Urine Urobilinogen Normal mg/dL (0.2-1.0) 07/20/17 11:49 Ur Leukocyte Esterase Neg Fransico/uL (Negative) 07/20/17 11:49 Urine WBC (Auto) 1 /hpf (0-5) 07/20/17 11:49 Urine RBC (Auto) < 1 /hpf (0-3) 07/20/17 11:49 HIV 1&2 Antibody Screen Negative (NEGATIVE) 07/22/17 08:58 Blood Type A POSITIVE 07/20/17 12:10 Antibody Screen Negative 07/20/17 12:10 - Hospital Course Hospital Course: Patient seen and examined today , denies any chest pain, sob, fever, chills, N/ V , c/o mild pain to the left elbow a febrile for OR today for closure of wound , pt is for discharge after then and follow up outpatient Discharge Exam - Head Exam Head Exam: ATRAUMATIC, NORMAL INSPECTION, NORMOCEPHALIC Discharge Plan - Discharge Medications Prescriptions: Clindamycin [Cleocin] 300 mg PO Q6 #28 cap - Follow Up Plan Condition: FAIR Disposition: HOME/ ROUTINE Instructions: Clindamycin (By mouth), Doxycycline (By mouth), Tramadol (By mouth), Abscess (GEN) Additional Instructions: Please f/u with Dr. Phelan office on Thursday continue antibiotics for 7 days Resume all other home medications PLEASE [employer] MEDICATION FROM [facility] Also follow up with Dr Ko on August 07. Called Office for appointment Referrals: Arnold Phelan MD [Staff Provider] - Renato Ko MD [Staff Provider] -
--- NOTE | 2017-07-25 00:01 | OP ---
PROCEDURE DATE: 07/24/2017 PREOPERATIVE DIAGNOSIS: Open right elbow wound with abscess. POSTOPERATIVE DIAGNOSIS: Open right elbow wound with abscess. PROCEDURE PERFORMED: Debridement, re-drainage of abscess, right elbow with repair of blood vessel and advancement flap closure. SURGEON: Renato Ko MD TYPE OF ANESTHESIA: General. ESTIMATED BLOOD LOSS: Less than 30 mL. POSTOPERATIVE CONDITION: Stable. DESCRIPTION OF PROCEDURE: The patient was taken to the operating room, general anesthesia was administered and the right elbow was placed across the chest where it was then prepped and draped. It was again aggressively debrided and any remaining collections were drained and cultured. Bleeding was controlled using the Bovie. A large blood vessels were repaired and wound was then pulse irrigated with saline and Kantrex solution. Transverse tissue flaps were raised using the Bovie and greater than 30 cm2 advancement flap closure was performed using multiple layers of Monocryl, subcuticular Monocryl, and skin clips. The patient tolerated the procedure well and returned to the recovery room in stable condition. Renato Ko MD
== END 2017-07-24 18:53 | disposition home or self-care (01) | DRG 575 ==
LOC: C.ER 10:12 → C.9E 13:40 → C.3T 17:40 → C.5S 07-21 16:24
PROVIDERS: ADMIT Internal Medicine; ATTEND Internal Medicine
PROC: 0HXEXZZ Transfer Left Lower Arm Skin, External Approach (ICD-10-PCS; 2017-07-20)
PROC: 06QY0ZZ Repair Lower Vein, Open Approach (ICD-10-PCS; 2017-07-20)
PROC: 0HBCXZZ Excision of Left Upper Arm Skin, External Approach (ICD-10-PCS; principal; 2017-07-20 14:45)
PROC: 06QY0ZZ Repair Lower Vein, Open Approach (ICD-10-PCS; 2017-07-21)
PROC: 0HXEXZZ Transfer Left Lower Arm Skin, External Approach (ICD-10-PCS; 2017-07-21)
PROC: 0H9EXZZ Drainage of Left Lower Arm Skin, External Approach (ICD-10-PCS; 2017-07-21)
PROC: 06QY0ZZ Repair Lower Vein, Open Approach (ICD-10-PCS; 2017-07-24)
PROC: 0HXEXZZ Transfer Left Lower Arm Skin, External Approach (ICD-10-PCS; 2017-07-24)
PROC: 0HDEXZZ Extraction of Left Lower Arm Skin, External Approach (ICD-10-PCS; 2017-07-24)
DX: L03.114 Cellulitis of left upper limb (principal); I10 Essential (primary) hypertension; B95.62 Methicillin resistant Staphylococcus aureus infection as the cause of diseases classified elsewhere; T78.3XXA Angioneurotic edema, initial encounter; E11.9 Type 2 diabetes mellitus without complications; L02.414 Cutaneous abscess of left upper limb; S51.002A Unspecified open wound of left elbow, initial encounter; W22.8XXA Striking against or struck by other objects, initial encounter; M71.022 Abscess of bursa, left elbow; T78.1XXA Other adverse food reactions, not elsewhere classified, initial encounter; Z79.4 Long term (current) use of insulin